=== PATIENT | female | born 1960 | race Caucasian/White ===

== ENCOUNTER 2017-11-30 21:20 | Emergency (ER) | payer OTHER ==
[~2017-11-30] VITALS: Ht 170.2 cm; Wt 104.3 kg
[~2017-11-30 21:20] MED LIST: ASPI325 PO; BACL10 PO; BP PILL; Bactrim Ds Tab1 EACH PO; Bactroban22 GM TOP; CALCAVITD PO; DICL25ER PO; ERGO400 PO; ERGO50000 PO; FURO20 PO; FURO40 PO; HYDACE5; HYDACE5 PO; HYDMOR4 PO; HYDR-86; IBUHYD PO; IBUP600 PO; IBUP800; IBUP800 PO; KETO10 PO; LEVFLO500 PO; LISHYD2025 PO; LISI5 PO; LORA1 PO; MELO7.5 PO; METF500 PO; METH5 PO; NAPR500 PO; NAPR550 PO; NORTRIPTYLINE; Naprosyn500 MG PO; OXYACE5T; OXYACE5T PO; OXYC5 PO; PRED20 PO; PROM25 PO; RXHYDACE PO; RXNAPNA550 PO; RXTRAM50 PO; SULTRIDS PO; TRAM50; VALS80; VICODIN ES 7.51 EACH PO; VIMOVO 500-201 EACH; VIMOVO 500-201 EACH PO; Veetids 500500 MG PO
[2017-12-01 00:02] LABS: BASOPHILS ABSOLUTE AUTO 0.04 K/mm3 (0.00-0.23); BASOPHILS PERCENT AUTO 1 % (0-2); EOSINOPHILS PERCENT AUTO 1 % (0-6); Hematocrit 38.5 % (33.0-51.0); Hemoglobin 12.3 g/dL (11.5-16.0); IMMATURE GRAN ABSOLUTE AUTO 0.02 K/mm3 (0.00-0.10); IMMATURE GRAN PERCENT AUTO 0 % (0-1); LYMPHOCYTES ABSOLUTE AUTO 2.59 K/mm3 (0.84-5.20); LYMPHOCYTES PERCENT AUTO 34 % (21-46); MONOCYTES ABSOLUTE AUTO 0.56 K/mm3 (0.16-1.47); MONOCYTES PERCENT AUTO 7 % (4-13); Mean Corpuscular HGB 28.5 pg (26.0-34.0); Mean Corpuscular HGB Conc 31.9 g/dL (31.5-36.5); Mean Corpuscular Volume 89 fL (80-100); Mean Platelet Volume 10.8 fL (9.1-12.4); NEUTROPHILS ABSOLUTE AUTO 4.35 K/mm3 (1.96-9.15); NEUTROPHILS PERCENT AUTO 57 % (41-73); Platelet Count 259 K/mm3 (150-400); RDW Coefficient Variation 12.7 % (11.7-14.2); RDW Standard Deviation 42.3 fL (35.1-46.3); Red Blood Cell Count 4.31 M/mm3 (3.80-5.20); White Blood Cell Count 7.66 K/mm3 (4.00-11.30)
[2017-12-01 00:36] LABS: Alanine Aminotransfer (ALT/SGP 17 U/L (12-78); Albumin, Blood 3.3 g/dL (3.4-5.0); Albumin/Globulin Ratio 0.8 (0.8-1.8); Alk Phos 153 U/L (50-136); Anion Gap 7 mmol/L (6-16); Aspartate Aminotrans (AST/SGOT 15 U/L (12-37); Bilirubin, Total 0.2 mg/dL (0.1-1.0); Blood Urea Nitrogen 21 mg/dL (8-24); Bun/Creatinine Ratio 26.4 (12.0-20.0); CO2, Blood 26 mmol/L (21-32); Chloride, Blood 110 mmol/L (98-108); Creatinine, Blood 0.79 mg/dL (0.40-1.00); Glomerular Filtration Rate >60 (60-); Glucose, Blood 103 mg/dL (70-99); Potassium, Blood 4.1 mmol/L (3.5-5.5); Sodium, Blood 143 mmol/L (136-145); Total Protein, Blood 7.3 g/dL (6.4-8.2); Troponin I <0.015 ng/mL (0.000-0.040)
== END 2017-12-01 01:31 | disposition home or self-care (01) ==
LOC: ER 21:20
PROVIDERS: Physician Assistant
DX: R07.9 Chest pain, unspecified (principal); M25.512 Pain in left shoulder; I10 Essential (primary) hypertension; Z88.8 Allergy status to other drugs, medicaments and biological substances; Z88.6 Allergy status to analgesic agent; Z79.899 Other long term (current) drug therapy; M54.9 Dorsalgia, unspecified; G89.29 Other chronic pain; Z98.51 Tubal ligation status; Z90.710 Acquired absence of both cervix and uterus; Z90.722 Acquired absence of ovaries, bilateral; Z90.49 Acquired absence of other specified parts of digestive tract
CPT/HCPCS: 36415; 71046; 80053; 84484; 85025; 93005; 93010; 99284

== ENCOUNTER 2017-12-20 08:59 | Day surgery (SDC) | payer OTHER | END 2017-12-20 22:54 | disposition home or self-care (01) | LOC: CT 08:59 | PROVIDERS: Radiology Diagnostic Radiology | PROC: B221YZZ Computerized Tomography (CT Scan) of Multiple Coronary Arteries using Other Contrast (ICD-10-PCS; principal; 2017-12-20 09:30) | DX: R07.9 Chest pain, unspecified (principal); R00.0 Tachycardia, unspecified; R94.39 Abnormal result of other cardiovascular function study | CPT/HCPCS: 75574; Q9967 ==

== ENCOUNTER → 2018-11-14 | Outpatient (CLI) | payer OTHER ==
[2018-11-21 14:11] LABS: HPV 16 Negative (Negative); HPV 18 Negative (Negative); HPV OTHER HR TYPES Negative (Negative)
== END | disposition home or self-care (01) ==
LOC: LAB SHORT 16:16 → LAB 16:16
PROVIDERS: Family Medicine
DX: Z01.411 Encounter for gynecological examination (general) (routine) with abnormal findings (principal); N95.2 Postmenopausal atrophic vaginitis
CPT/HCPCS: 87070; 87205; 87624; G0123

== ENCOUNTER 2019-07-23 07:17 | Emergency (ER) | payer OTHER ==
[~2019-07-23] VITALS: Ht 170.2 cm; Wt 108.9 kg
[~2019-07-23 07:17] MED LIST changes: +CEPH500 PO; +Pyridium100 MG PO
== END 2019-07-23 08:31 | disposition home or self-care (01) ==
LOC: ER 07:17
DX: S70.01XA Contusion of right hip, initial encounter (principal); S30.0XXA Contusion of lower back and pelvis, initial encounter; S50.311A Abrasion of right elbow, initial encounter; W10.9XXA Fall (on) (from) unspecified stairs and steps, initial encounter; Z88.8 Allergy status to other drugs, medicaments and biological substances; Z88.5 Allergy status to narcotic agent
CPT/HCPCS: 72100; 73502; 99283-25

== ENCOUNTER 2020-07-08 18:28 | Inpatient (IN) | payer OTHER ==
[~2020-07-08] VITALS: Ht 170.2 cm; Wt 115.7 kg
[2020-07-08 19:13] LABS: BASOPHILS ABSOLUTE AUTO 0.04 K/mm3 (0.00-0.23); BASOPHILS PERCENT AUTO 1 % (0-2); EOSINOPHILS ABSOLUTE AUTO 0.02 K/mm3 (0.00-0.68); EOSINOPHILS PERCENT AUTO 0 % (0-6); Hematocrit 43.3 % (33.0-51.0); Hemoglobin 14.3 g/dL (11.5-16.0); IMMATURE GRAN ABSOLUTE AUTO 0.03 K/mm3 (0.00-0.10); IMMATURE GRAN PERCENT AUTO 0 % (0-1); LYMPHOCYTES ABSOLUTE AUTO 2.39 K/mm3 (0.84-5.20); LYMPHOCYTES PERCENT AUTO 29 % (21-46); MONOCYTES ABSOLUTE AUTO 0.52 K/mm3 (0.16-1.47); MONOCYTES PERCENT AUTO 6 % (4-13); Mean Corpuscular HGB 28.4 pg (26.0-34.0); Mean Corpuscular Volume 86 fL (80-100); Mean Platelet Volume 10.1 fL (9.1-12.4); NEUTROPHILS ABSOLUTE AUTO 5.32 K/mm3 (1.96-9.15); NEUTROPHILS PERCENT AUTO 64 % (41-73); Platelet Count 306 K/mm3 (150-400); RDW Coefficient Variation 13.3 % (11.7-14.2); RDW Standard Deviation 41.6 fL (35.1-46.3); Red Blood Cell Count 5.03 M/mm3 (3.80-5.20); White Blood Cell Count 8.32 K/mm3 (4.00-11.30)
[2020-07-08 19:38] LABS: Alanine Aminotransfer (ALT/SGP 17 U/L (12-78); Albumin, Blood 3.5 g/dL (3.4-5.0); Albumin/Globulin Ratio 0.7 (0.8-1.8); Alk Phos 170 U/L (50-136); Anion Gap 7 mmol/L (6-16); Aspartate Aminotrans (AST/SGOT 20 U/L (12-37); Bilirubin, Total 0.6 mg/dL (0.1-1.0); Blood Urea Nitrogen 14 mg/dL (8-24); Bun/Creatinine Ratio 14.7 (12.0-20.0); CO2, Blood 23 mmol/L (21-32); Calcium, Blood 9.3 mg/dL (8.5-10.1); Chloride, Blood 107 mmol/L (98-108); Creatinine, Blood 0.95 mg/dL (0.40-1.00); Globulin, Blood 4.7 g/dL (2.2-4.0); Glomerular Filtration Rate >60 (60-); Glucose, Blood 122 mg/dL (70-99); Potassium, Blood 4.2 mmol/L (3.5-5.5); Sodium, Blood 137 mmol/L (136-145); Total Protein, Blood 8.2 g/dL (6.4-8.2)
[2020-07-08 21:47] LABS: Source, Urine Clean Catch
[2020-07-08 21:50] LABS: Blood, Urine 5+ (Neg); Glucose Qualitative, Urine Neg (Neg); Ketones, Urine 1+ (Neg); Leukocyte Esterase, Urine 1+ (Neg); Nitrite, Urine Pos (Neg); Protein, Urine 3+ (Neg); Specific Gravity, Urine 1.015 (1.003-1.022); Urobilinogen, Urine 2+ (Normal)
[2020-07-08 21:51] LABS: Prothrombin Time Results 86.5 Sec (9.7-11.5)
[2020-07-08 21:54] LABS: International Normalized Ratio 9.16
[2020-07-08 21:54] LABS: Appearance, Urine Cloudy (Clear); Bilirubin, Urine 1+ (Neg); Color, Urine Brown (P-Yellow)
[2020-07-08 21:58] LABS: Amorphous Light (0-Heavy); Bacteria Mod /hpf; Red Blood Cells, Urine TNTC /hpf (0-2); Squamous Epithelial Cells Not Seen /hpf (Few); White Blood Cells, Urine 25-50 /hpf (0-5)
[2020-07-08] MEDS ORDERED: WARF7.5 PO (22:11)
[2020-07-08] MEDS ORDERED: VENL37.5 PO (22:11)
[2020-07-08] MEDS ORDERED: METO50ER PO (22:13)
[2020-07-08 22:27] LABS: Body Fluid Crystals NEG (NEGATIVE)
[2020-07-08 22:41] LABS: BODY FLUID RBC 3.985 M/mm3 (0-0); RBC Count, Synovial Fluid 3985000 /mm3 (0-0); WBC Count, Synovial Fluid 2925 /mm3 (0-180)
[2020-07-08 23:03] LABS: Eos, Synovial Fluid 1 % (0-2); Lymphs, Synovial Fluid 32 % (0-15); Monocytes/Macrophages, Synovia 3 % (0-65); Neutrophils, Synovial Fluid 64 % (0-24)
[2020-07-08 23:04] LABS: Appearance, Synovial Fluid Bloody (Clear); Color, Synovial Fluid Red (None-P Yel)
[2020-07-09] MEDS ORDERED: FURO20 PO (01:46)
--- NOTE | 2020-07-09 05:13 | NUR ---
SHIFT SUMMARY PT ER ADMIT THIS SHIFT FOR UTI/FEVER, INCREASED INR/PT. PT RECEIVED VITAMIN K IN THE ER. DR. ZHONG ORDERED 4 UNITS OF PLASMA ALSO TO INFUSED TO REVERSE ELEVATED INR/PT. PT HAS TOLERATED PLASMA INFUSION WITH NO REACTIONS. PT STILL HAS TWO UNITS TO INFUSE. PT/INR TO BE RECHECKED AFTER INFUSION. PT CONTINUES TO BE HYPERTENSIVE. IMPROVED FROM ER, BUT BP GOES UP AND DOWN AND INCREASES WITH PAIN PER HER REPORT. HYDRALYZINE ORDERED FOR SBP OVER 160. PT HAS AMBULATED TO THE BATHROOM SINCE ARRIVING TO FLOOR AND SHE REPORTS THAT SHE TOLERATED WELL. FLUID DRAINED OFF KNEE IN ER WHICH ALSO RELIVED PAIN. IV ABX INFUSED IN ER. NO ACUTE EVENTS SINCE ARRIVING TO THE UNIT. ADMISSION COMPLETE. BED IN LOWEST POSITION, CALL LIGHT WITHIN REACH.
[2020-07-09 05:21] LABS: BASOPHILS ABSOLUTE AUTO 0.03 K/mm3 (0.00-0.23); BASOPHILS PERCENT AUTO 1 % (0-2); EOSINOPHILS ABSOLUTE AUTO 0.03 K/mm3 (0.00-0.68); EOSINOPHILS PERCENT AUTO 1 % (0-6); Hematocrit 37.8 % (33.0-51.0); Hemoglobin 11.8 g/dL (11.5-16.0); IMMATURE GRAN ABSOLUTE AUTO 0.02 K/mm3 (0.00-0.10); IMMATURE GRAN PERCENT AUTO 0 % (0-1); LYMPHOCYTES ABSOLUTE AUTO 2.27 K/mm3 (0.84-5.20); LYMPHOCYTES PERCENT AUTO 34 % (21-46); MONOCYTES ABSOLUTE AUTO 0.49 K/mm3 (0.16-1.47); MONOCYTES PERCENT AUTO 7 % (4-13); Mean Corpuscular HGB 27.8 pg (26.0-34.0); Mean Corpuscular HGB Conc 31.2 g/dL (31.5-36.5); Mean Corpuscular Volume 89 fL (80-100); Mean Platelet Volume 10.7 fL (9.1-12.4); NEUTROPHILS ABSOLUTE AUTO 3.78 K/mm3 (1.96-9.15); NEUTROPHILS PERCENT AUTO 57 % (41-73); Platelet Count 216 K/mm3 (150-400); RDW Coefficient Variation 13.3 % (11.7-14.2); RDW Standard Deviation 43.3 fL (35.1-46.3); Red Blood Cell Count 4.25 M/mm3 (3.80-5.20); White Blood Cell Count 6.62 K/mm3 (4.00-11.30)
[2020-07-09 05:34] LABS: International Normalized Ratio 3.01
[2020-07-09 05:42] LABS: Prothrombin Time Results 30.3 Sec (9.7-11.5)
[2020-07-09 05:45] LABS: Anion Gap 6 mmol/L (6-16); Blood Urea Nitrogen 15 mg/dL (8-24); Bun/Creatinine Ratio 15.7 (12.0-20.0); CO2, Blood 25 mmol/L (21-32); Calcium, Blood 9.1 mg/dL (8.5-10.1); Chloride, Blood 109 mmol/L (98-108); Creatinine, Blood 0.95 mg/dL (0.40-1.00); Glomerular Filtration Rate >60 (60-); Glucose, Blood 98 mg/dL (70-99); Potassium, Blood 3.9 mmol/L (3.5-5.5); Sodium, Blood 140 mmol/L (136-145)
--- NOTE | 2020-07-09 05:47 | NUR ---
PT/INR PT IS 30.[address] ZHONG CALLED AND NOTIFIED AND NOTIFIED THAT PT HAD ALREADY RECEIVED 2 UNITS OF PLASMA. SHE WOULD LIKE THE OTHER 2 UNITS INFUSED AND RECHECKED PT/INR AFTER THEY ARE DONE.
--- NOTE | 2020-07-09 06:51 | NUR ---
DAYSHIFT RN TO INFUSE LAST UNIT OF PLASMA. CHANGE OF SHIFT WILL NOT HAVE TIME TO DO 15 MINUTE MONITORING. PT HAS RECEIVED THREE TOTAL UNITS.
[2020-07-09 09:05] LABS: International Normalized Ratio 1.77
[2020-07-09 09:23] LABS: Prothrombin Time Results 18.3 Sec (9.7-11.5)
[2020-07-09] MEDS ORDERED: CEFP200 PO (12:30)
--- NOTE | 2020-07-09 13:20 | NUR ---
DISCHARGE NOTE PATIENT DISCHARGED TO HOME. PATIENT ALERT AND ORIENTED THROUGHOUT THIS SHIFT. PATIENT INDEPENDENT TO THE RESTROOM THIS SHIFT. PATIENT DOWN TO IMAGING THIS AM. PATIENT STATES PAIN IN RIGHT KNEE VASTLY IMPROVED. PATIENT'S DAUGHTER IN THE ROOM THIS AM TO VISIT. IV REMOVED PRIOR TO DISCHARGE. PATIENT PROVIDED WITH DISCHARGE AND MEDICATION INSTRUCTIONS. PATIENT DRESSED INDEPENDENTLY. PATIENT TO SISTER'S VEHICLE VIA WHEELCHAIR BY ALEX.
== END 2020-07-09 13:15 | disposition home or self-care (01) | DRG 554 ==
LOC: ER 18:28 → MEDS 18:29
PROVIDERS: Emergency Medicine; ADMIT Family Medicine
PROC: 0S9C3ZZ Drainage of Right Knee Joint, Percutaneous Approach (ICD-10-PCS; principal; 2020-07-08)
PROC: 30233L1 Transfusion of Nonautologous Fresh Plasma into Peripheral Vein, Percutaneous Approach (ICD-10-PCS; 2020-07-09)
DX: M25.061 Hemarthrosis, right knee (principal); N39.0 Urinary tract infection, site not specified; R65.10 Systemic inflammatory response syndrome (SIRS) of non-infectious origin without acute organ dysfunction; Z96.651 Presence of right artificial knee joint; G89.29 Other chronic pain; I48.91 Unspecified atrial fibrillation; R79.89 Other specified abnormal findings of blood chemistry; I10 Essential (primary) hypertension; E66.9 Obesity, unspecified; Z68.39 Body mass index [BMI] 39.0-39.9, adult
CPT/HCPCS: 20610; 36415; 73564; 74176; 80048; 80053; 81001; 83690; 85025; 85610; 85651; 86140; 86900; 86901; 87070; 87075; 87086; 87205; 89051; 89060; 96361-59; 96365-59; 96372-59; 96375-59; 99284-25; A9270-GY; J0692; J0696; J1885; J3430; J7030; J7040; P9059; P9612

== ENCOUNTER 2021-04-02 17:17 | Emergency (ER) | payer OTHER ==
[~2021-04-02] VITALS: Ht 170.2 cm; Wt 113.4 kg
[~2021-04-02 17:17] MED LIST changes: +CEFP200 PO; +METO50ER PO; +OLME5TAB PO; +VENL37.5 PO; +WARF7.5 PO
== END 2021-04-02 19:25 | disposition home or self-care (01) ==
LOC: ER 17:17
DX: M25.462 Effusion, left knee (principal); I48.91 Unspecified atrial fibrillation; Z88.5 Allergy status to narcotic agent; Z88.8 Allergy status to other drugs, medicaments and biological substances; Z79.01 Long term (current) use of anticoagulants
CPT/HCPCS: 73562-LT; 99283-25

== ENCOUNTER 2021-04-02 20:40 | Emergency (ER) | payer OTHER ==
[~2021-04-02] VITALS: Ht 170.2 cm; Wt 113.4 kg
[2021-04-02 21:56] LABS: BASOPHILS ABSOLUTE AUTO 0.05 K/mm3 (0.00-0.23); BASOPHILS PERCENT AUTO 1 % (0-2); EOSINOPHILS ABSOLUTE AUTO 0.06 K/mm3 (0.00-0.68); EOSINOPHILS PERCENT AUTO 1 % (0-6); Hematocrit 41.4 % (33.0-51.0); Hemoglobin 13.4 g/dL (11.5-16.0); IMMATURE GRAN ABSOLUTE AUTO 0.01 K/mm3 (0.00-0.10); IMMATURE GRAN PERCENT AUTO 0 % (0-1); LYMPHOCYTES ABSOLUTE AUTO 2.25 K/mm3 (0.84-5.20); LYMPHOCYTES PERCENT AUTO 29 % (21-46); MONOCYTES ABSOLUTE AUTO 0.47 K/mm3 (0.16-1.47); MONOCYTES PERCENT AUTO 6 % (4-13); Mean Corpuscular HGB 27.7 pg (26.0-34.0); Mean Corpuscular HGB Conc 32.4 g/dL (31.5-36.5); Mean Corpuscular Volume 86 fL (80-100); NEUTROPHILS ABSOLUTE AUTO 4.92 K/mm3 (1.96-9.15); NEUTROPHILS PERCENT AUTO 63 % (41-73); Platelet Count 306 K/mm3 (150-400); RDW Coefficient Variation 14.2 % (11.7-14.2); RDW Standard Deviation 44.5 fL (35.1-46.3); Red Blood Cell Count 4.83 M/mm3 (3.80-5.20); White Blood Cell Count 7.76 K/mm3 (4.00-11.30)
[2021-04-02 22:14] LABS: Albumin, Blood 3.8 g/dL (3.4-5.0); Albumin/Globulin Ratio 0.8 (0.8-1.8); Bilirubin, Total 0.7 mg/dL (0.1-1.0); Bun/Creatinine Ratio 13.6 (12.0-20.0); Calcium, Blood 9.2 mg/dL (8.5-10.1); Creatinine, Blood 1.03 mg/dL (0.40-1.00); Globulin, Blood 4.5 g/dL (2.2-4.0); Potassium, Blood 4.1 mmol/L (3.5-5.5); Total Protein, Blood 8.3 g/dL (6.4-8.2)
[2021-04-02 23:18] LABS: Source, Urine Clean Catch
[2021-04-02 23:21] LABS: Bilirubin, Urine Neg (Neg); Blood, Urine 5+ (Neg); Glucose Qualitative, Urine Neg (Neg); Ketones, Urine Neg (Neg); Leukocyte Esterase, Urine Neg (Neg); Nitrite, Urine Neg (Neg); Protein, Urine 4+ (Neg); Urobilinogen, Urine NORM (Normal); pH, Urine 6.5 (5.0-8.0)
[2021-04-02 23:31] LABS: International Normalized Ratio 7.48; Prothrombin Time Results 72.1 Sec (9.7-11.5)
[2021-04-02 23:35] LABS: Appearance, Urine Turbid (Clear); Color, Urine Red (P-Yellow)
[2021-04-02 23:36] LABS: Bacteria Few /hpf; Red Blood Cells, Urine TNTC /hpf (0-2); Squamous Epithelial Cells Rare /hpf (Few)
== END 2021-04-03 01:05 | disposition home or self-care (01) ==
LOC: ER 20:40
PROVIDERS: Physician Assistant
DX: M25.062 Hemarthrosis, left knee (principal); R31.9 Hematuria, unspecified; R79.1 Abnormal coagulation profile; I48.91 Unspecified atrial fibrillation; Z88.5 Allergy status to narcotic agent; Z88.8 Allergy status to other drugs, medicaments and biological substances
CPT/HCPCS: 36415; 74177; 80053; 81001; 85025; 85610; 85730; 86850; 86900; 86901; 87086; 93005; 93010; 99283; 99284-25; A9270; Q9967

== ENCOUNTER 2021-04-05 18:26 | Emergency (ER) | payer OTHER ==
[~2021-04-05] VITALS: Ht 170.2 cm; Wt 113.4 kg
[2021-04-05 19:17] LABS: BASOPHILS ABSOLUTE AUTO 0.04 K/mm3 (0.00-0.23); BASOPHILS PERCENT AUTO 1 % (0-2); EOSINOPHILS ABSOLUTE AUTO 0.08 K/mm3 (0.00-0.68); EOSINOPHILS PERCENT AUTO 1 % (0-6); Hematocrit 39.1 % (33.0-51.0); Hemoglobin 12.6 g/dL (11.5-16.0); IMMATURE GRAN ABSOLUTE AUTO 0.01 K/mm3 (0.00-0.10); IMMATURE GRAN PERCENT AUTO 0 % (0-1); LYMPHOCYTES ABSOLUTE AUTO 2.04 K/mm3 (0.84-5.20); LYMPHOCYTES PERCENT AUTO 36 % (21-46); MONOCYTES ABSOLUTE AUTO 0.37 K/mm3 (0.16-1.47); MONOCYTES PERCENT AUTO 7 % (4-13); Mean Corpuscular HGB 27.7 pg (26.0-34.0); Mean Corpuscular HGB Conc 32.2 g/dL (31.5-36.5); Mean Corpuscular Volume 86 fL (80-100); Mean Platelet Volume 10.8 fL (9.1-12.4); NEUTROPHILS ABSOLUTE AUTO 3.06 K/mm3 (1.96-9.15); NEUTROPHILS PERCENT AUTO 55 % (41-73); Platelet Count 298 K/mm3 (150-400); RDW Coefficient Variation 14.1 % (11.7-14.2); RDW Standard Deviation 44.1 fL (35.1-46.3); Red Blood Cell Count 4.55 M/mm3 (3.80-5.20)
[2021-04-05 19:36] LABS: Albumin, Blood 3.6 g/dL (3.4-5.0); Albumin/Globulin Ratio 0.8 (0.8-1.8); Bilirubin, Total 0.7 mg/dL (0.1-1.0); Bun/Creatinine Ratio 14.5 (12.0-20.0); Calcium, Blood 9.4 mg/dL (8.5-10.1); Creatinine, Blood 1.1 mg/dL (0.40-1.00); Globulin, Blood 4.5 g/dL (2.2-4.0); Potassium, Blood 4.3 mmol/L (3.5-5.5); Total Protein, Blood 8.1 g/dL (6.4-8.2)
[2021-04-05 20:26] LABS: Source, Urine Clean Catch
[2021-04-05 20:39] LABS: Appearance, Urine Clear (Clear); Bilirubin, Urine Neg (Neg); Blood, Urine 5+ (Neg); Color, Urine Amber (P-Yellow); Glucose Qualitative, Urine Neg (Neg); Ketones, Urine Neg (Neg); Leukocyte Esterase, Urine 1+ (Neg); Nitrite, Urine Neg (Neg); Protein, Urine 3+ (Neg); Specific Gravity, Urine 1.025 (1.003-1.022); Urobilinogen, Urine 2+ (Normal)
[2021-04-05 20:50] LABS: Bacteria Many /hpf; Mucus Light (0-Heavy); Red Blood Cells, Urine 50-100 /hpf (0-2); Squamous Epithelial Cells Few /hpf (Few)
[2021-04-05] MEDS ORDERED: CEFD300 PO (22:13)
== END 2021-04-05 22:40 | disposition home or self-care (01) ==
LOC: ER 18:26
PROVIDERS: Physician Assistant
DX: N12 Tubulo-interstitial nephritis, not specified as acute or chronic (principal); I48.91 Unspecified atrial fibrillation; Z79.01 Long term (current) use of anticoagulants; Z79.899 Other long term (current) drug therapy; Z88.5 Allergy status to narcotic agent; Z88.8 Allergy status to other drugs, medicaments and biological substances
CPT/HCPCS: 36415; 80053; 81001; 83690; 85025; 87086; 96374; 96375; 96376; 99284-25; A9270; J0696; J2405

== ENCOUNTER 2022-06-30 14:19 | Emergency (ER) | payer OTHER ==
[~2022-06-30] VITALS: Ht 170.2 cm; Wt 113.4 kg
[~2022-06-30 14:19] MED LIST changes: +CEFD300 PO
[2022-06-30 15:02] LABS: BASOPHILS ABSOLUTE AUTO 0.03 K/mm3 (0.00-0.23); BASOPHILS PERCENT AUTO 1 % (0-2); EOSINOPHILS ABSOLUTE AUTO 0.06 K/mm3 (0.00-0.68); EOSINOPHILS PERCENT AUTO 1 % (0-6); Hematocrit 35.4 % (33.0-51.0); Hemoglobin 11.4 g/dL (11.5-16.0); IMMATURE GRAN ABSOLUTE AUTO 0.01 K/mm3 (0.00-0.10); IMMATURE GRAN PERCENT AUTO 0 % (0-1); LYMPHOCYTES ABSOLUTE AUTO 1.66 K/mm3 (0.84-5.20); LYMPHOCYTES PERCENT AUTO 34 % (21-46); MONOCYTES ABSOLUTE AUTO 0.28 K/mm3 (0.16-1.47); MONOCYTES PERCENT AUTO 6 % (4-13); Mean Corpuscular HGB 28.1 pg (26.0-34.0); Mean Corpuscular HGB Conc 32.2 g/dL (31.5-36.5); Mean Corpuscular Volume 87 fL (80-100); Mean Platelet Volume 10.9 fL (9.1-12.4); NEUTROPHILS ABSOLUTE AUTO 2.81 K/mm3 (1.96-9.15); NEUTROPHILS PERCENT AUTO 58 % (41-73); Platelet Count 251 K/mm3 (150-400); RDW Standard Deviation 45.1 fL (35.1-46.3); Red Blood Cell Count 4.05 M/mm3 (3.80-5.20); White Blood Cell Count 4.85 K/mm3 (4.00-11.30)
[2022-06-30 15:22] LABS: Albumin, Blood 3.2 g/dL (3.4-5.0); Albumin/Globulin Ratio 0.9 (0.8-1.8); Bilirubin, Total 0.4 mg/dL (0.1-1.0); Bun/Creatinine Ratio 18.1 (12.0-20.0); Calcium, Blood 8.7 mg/dL (8.5-10.1); Creatinine, Blood 0.88 mg/dL (0.40-1.00); Globulin, Blood 3.5 g/dL (2.2-4.0); Potassium, Blood 3.9 mmol/L (3.5-5.5); Total Protein, Blood 6.7 g/dL (6.4-8.2)
[2022-06-30] MEDS ORDERED: XARELTO20 M1 PO (17:23)
[2022-06-30 18:03] LABS: Influenza A, PCR NEGATIVE (NEGATIVE); Influenza B, PCR NEGATIVE (NEGATIVE); Resp Syncytial Virus, PCR NEGATIVE (NEGATIVE); SARS-Cov-2 (COVID-19) PCR, MMC NEGATIVE (NEGATIVE)
== END 2022-06-30 18:55 | disposition home or self-care (01) ==
LOC: ER 14:19
PROVIDERS: Physician Assistant; Student in an Organized Health Care Education/Training Program
DX: I10 Essential (primary) hypertension (principal); R07.9 Chest pain, unspecified; Z88.5 Allergy status to narcotic agent; Z88.8 Allergy status to other drugs, medicaments and biological substances; Z79.01 Long term (current) use of anticoagulants; Z20.822 Contact with and (suspected) exposure to COVID-19
CPT/HCPCS: 0241U; 36415; 71046; 80053; 83690; 83880; 84484; 85025; 93005; 93010

== ENCOUNTER 2023-03-26 07:21 | Day surgery (SDC) | payer OTHER ==
[~2023-03-26] VITALS: Ht 170.2 cm; Wt 120.2 kg
[2023-03-26] VITALS (9 sets, daily range): BP systolic 115–152; BP diastolic 75–99
[~2023-03-26 07:21] MED LIST changes: +NARA2.5; +OLME20 PO; +XARELTO20 M1 PO
--- NOTE | 2023-03-26 17:49 | NUR ---
SHIFT SUMMARY: PT ARRIVED IN PCU APPROX 1400 FOLLOWING PACEMAKER IMPLANT. PT A&OX4, LETHARGIC IN BED. ABLE TO MAKE NEEDS KNOWN TO STAFF. HR AFIB WITH VENTRICULAR PACING, 60'S. SBP MOSTLY 130-150'S. SPO2 >90% ON RA. PT DENIES SOB. PT REPORTS PAIN 11/10 IN LEFT CHEST. MEDICATED WITH NORCO PER EMAR. SLING PLACED ON LUE PER ORDERS. IV IN LAC SALINE LOCKED. PT HAS NOT VOIDED FOLLOWING PROCEDURE. ABLE TO EAT WITH MINIMAL ASSISTANCE. FAMILY MEMBERS AT BEDSIDE. CALL LIGHT WITHIN REACH. NO FURTHER NEEDS AT THIS TIME.
[2023-03-27 03:11] VITALS: BP 135/88
--- NOTE | 2023-03-27 06:11 | NUR ---
SHIFT SUMMARY PT IS A&OX4, CALLS APPROPRIATELY AND MAKES NEEDS KNOWN. SHE IS A 1P SBA TO THE BATHROOM AND ON A CARDIAC DIET. PT HAS BEEN ON RA MOST OF THE NIGHT, BUT SHE BEGAN TO DESATURATE TO THE MID 80 S WHILE SLEEPING AND WAS PUT ON 1L NC. SHE HAS NOT DESATURATED SINCE. ON TELE SHE HAS BEEN PACED AT 60 ON TELE AND SHE DENIES ANY ANGINA OR CHEST PRESSURE. THE PT HAS BEEN HAVING SOME PAIN AT THE INCISION SITE AND HAS NEEDED MEDICATIONS T/O THE SHIFT. PT DENIES ANY HEADACHE, N/V/D, OR OTHER PAIN. HER BED IS IN LOW AND CALL LIGHT IS IN REACH, SEE NOTES FOR ANY UPDATES.
[2023-03-27 08:31] VITALS: BP 120/75
[2023-03-27] MEDS ORDERED: CEPH500 PO (09:09)
--- NOTE | 2023-03-27 10:01 | NUR ---
DISCHARGE: PATIENT ALERT AND ORIENTED X4. PERRLA, WEARING GLASSES. UP WITH SBA. CHRONIC N/T TO LEFT FOOT/TOES AND LOWER LEG. S/P PACER PLACEMENT ON 03/26. LEFT SHOULDER SLING IN PLACE. PATIENT EDUCATED ON POST PACER PRECAUTIONS. WRITTEN PACKET PROVIDED. PACER INTERROGATION COMPLETED THIS AM WELL CHEST XRAY. DR. ARIZA TO BEDSIDE TO CHANGE DRESSING. PACER SITE C/D/I. NO SIGNS OF BLEEDING. PATIENT COMPLAINS OF SORENESS AT SITE. MEDICATED PER EMAR. PATIENT EDUCATED ON FOLLOW UP APPOINTMENTS AND HOLDING XERALTO. ANTIBIOTIC FAXED TO [facility] AND PATIENT TO RETAIL DEPARTMENT RESET. PATIENT ABLE TO VERBALIZE INSTRUCTIONS BACK TO THIS RN. ON ROOM AIR, DENIES SOB/COUGH. EATING AND VOIDING WNL. UP SBA. FAMILY PRESENT AT DISCHARGE AND FOR DISCHARGE EDUCATION. PATIENT LEFT UNIT WITH ALL PERSONAL BELONGINGS INCLUDING PACER INSTRUCTIONS AND TEMPORARY PACER CARD.
== END 2023-03-27 09:47 | disposition home or self-care (01) ==
LOC: PCU 07:21 → MHTC 07:21 → PCU 15:06 → MHTC 03-27 09:47
DX: I48.0 Paroxysmal atrial fibrillation (principal); I48.19 Other persistent atrial fibrillation; E11.8 Type 2 diabetes mellitus with unspecified complications; E11.51 Type 2 diabetes mellitus with diabetic peripheral angiopathy without gangrene; Z95.0 Presence of cardiac pacemaker; I49.5 Sick sinus syndrome; I10 Essential (primary) hypertension
CPT/HCPCS: 33208; 71045; 71046; 76937; 99152; 99153; A9270; C1781; C1785; C1894; C1898; J0690; J1644; J2250; J3010; J7030; J7040

== ENCOUNTER 2023-06-15 05:32 | Day surgery (SDC) | payer OTHER | END 2023-06-15 22:35 | disposition home or self-care (01) | LOC: MHTC 05:32 | DX: I48.19 Other persistent atrial fibrillation (principal); I49.5 Sick sinus syndrome; F32.A Depression, unspecified; Z95.0 Presence of cardiac pacemaker; Z96.652 Presence of left artificial knee joint; Z88.8 Allergy status to other drugs, medicaments and biological substances; Z88.6 Allergy status to analgesic agent ==

== ENCOUNTER 2023-08-14 06:05 | Day surgery (SDC) | payer OTHER ==
[~2023-08-14] VITALS: Ht 167.6 cm; Wt 116.2 kg
[2023-08-14] VITALS (13 sets, daily range): BP systolic 87–151; BP diastolic 45–97
[~2023-08-14 06:05] MED LIST changes: +POTCHL20ER PO; +XARELTO20 MG PO
[2023-08-14] MEDS ORDERED: OZEMPIC1 MG/0.72 SC (06:30)
--- NOTE | 2023-08-14 08:31 | NUR ---
08/14/23 0831 Lora Marcelo SPINAL NERVE BLOCK COMPLETED BY DR. GARCIA UPON ENTRY TO OR. PT TOLERATED WELL.
--- NOTE | 2023-08-14 10:53 | NUR ---
PT ARRIVED TO THE UNIT AT APPROXIMATELY 1015. PT ALERT AND ORIENTED UPON ARRIVAL. PT EDUCATED TO USE THE CALL LIGHT, CALL LIGHT WITHIN REACH. PT PROVIDED WITH CLEAR LIQUIDS AND CRACKERS. LUNCH TRAY ORDERED. FAMILY AT BEDSIDE FOR SUPPORT.
--- NOTE | 2023-08-14 19:53 | NUR ---
SHIFT SUMMARY PT IS POD#0 FROM [facility] WITH DR. CLEVELAND. PAIN MANAGED WITH OXYCODONE. PT HAS VOIDED AND WORKED WITH THERAPY. SHE IS TOLERATING PO. BP HAS BEEN SOFT BUT IMPROVED. REPORT GIVEN TO RONA ROMERO.
[2023-08-15 00:08] VITALS: BP 136/81
[2023-08-15 03:54] VITALS: BP 140/82
[2023-08-15 04:20] LABS: BASOPHILS ABSOLUTE AUTO 0.01 K/mm3 (0.00-0.23); BASOPHILS PERCENT AUTO 0 % (0-2); EOSINOPHILS PERCENT AUTO 0 % (0-6); Hematocrit 31.6 % (33.0-51.0); Hemoglobin 9.9 g/dL (11.5-16.0); IMMATURE GRAN ABSOLUTE AUTO 0.05 K/mm3 (0.00-0.10); IMMATURE GRAN PERCENT AUTO 1 % (0-1); LYMPHOCYTES ABSOLUTE AUTO 1.06 K/mm3 (0.84-5.20); LYMPHOCYTES PERCENT AUTO 10 % (21-46); MONOCYTES ABSOLUTE AUTO 0.63 K/mm3 (0.16-1.47); MONOCYTES PERCENT AUTO 6 % (4-13); Mean Corpuscular HGB 26.7 pg (26.0-34.0); Mean Corpuscular HGB Conc 31.3 g/dL (31.5-36.5); Mean Corpuscular Volume 85 fL (80-100); Mean Platelet Volume 11.3 fL (9.1-12.4); NEUTROPHILS ABSOLUTE AUTO 9.25 K/mm3 (1.96-9.15); NEUTROPHILS PERCENT AUTO 84 % (41-73); Platelet Count 208 K/mm3 (150-400); RDW Coefficient Variation 14.6 % (11.7-14.2); RDW Standard Deviation 45.3 fL (35.1-46.3); Red Blood Cell Count 3.71 M/mm3 (3.80-5.20)
--- NOTE | 2023-08-15 04:46 | NUR ---
SHIFT SUMMARY NOC. PT POD 1 FOR LEFT TOTAL HIP BY DR. CLEVELAND. PT MEDICATED PER EMAR WITH OXYCODONE WITH RELIEF. PT TOLERATING PO INTAKE AND VOIDING URINE. PT AMBULATED TO THE BATHROOM AND WALKED AROUND THE ROOM WITH WALKER AND GAIT BELT. AQUACEL DRESSING C/D/I. PT RESTED THROUGHOUT THE NIGHT WITH CALL LIGHT IN REACH.
[2023-08-15 04:48] LABS: Bun/Creatinine Ratio 15.3 (12.0-20.0); Calcium, Blood 8.7 mg/dL (8.5-10.1); Creatinine, Blood 0.91 mg/dL (0.40-1.00); Potassium, Blood 4.4 mmol/L (3.5-5.5)
[2023-08-15 08:13] VITALS: BP 135/95
[2023-08-15] MEDS ORDERED: Percocet 5-3251 EACH PO (09:02)
--- NOTE | 2023-08-15 09:42 | NUR ---
DISCHARGE NOTE: PATIENT WAS EDUCATED ON DISCHARGE INSTRUCTIONS. SHE VERBALIZED UNDERSTANDING OF INSTRUCTIONS AND HAD NO FURTHER QUESTIONS AT THIS TIME. HER HARD PERSCRIPTION WAS PLACED IN HER DISCHARGE INSTRUCTIONS FOLDER. PAIN IS MANAGED WITH PO PAIN MEDS. HER LEFT HIP HAS AN AQUACEL THAT IS C/D/I. SHE DENIES NUMBNESS OR TINGLING IN ALL EXTREMITIES. CAN MOVE ALL FINGERS AND TOES WHEN ASKED. PATIENT IS DRESSED AND HAS PERSONAL ITEMS IN THE ROOM GATHERED. IV WAS TAKEN OUT AND WNL. SHE IS BEING WHEELCHAIRED OUT TO HER RIDE TO BE TAKEN HOME.
--- NOTE | 2023-08-15 09:43 | NUR ---
PATIENT IS TOLERATING PO INTAKE AND IS VOIDING. SHE IS A SBA WITH FWW AND GAIT BELT.
== END 2023-08-15 09:46 | disposition home or self-care (01) ==
LOC: ORSCMMR 06:05 → ORD 07:30 → ORSCMMR 07:30 → SURS 10:09 → ORD 11:00 → ORSCMMR 08-15 09:46
PROVIDERS: Orthopaedic Surgery
PROC: 0SRB0JZ Replacement of Left Hip Joint with Synthetic Substitute, Open Approach (ICD-10-PCS; principal; 2023-08-14 07:30)
DX: M16.12 Unilateral primary osteoarthritis, left hip (principal); I10 Essential (primary) hypertension; E66.01 Morbid (severe) obesity due to excess calories; Z68.41 Body mass index [BMI] 40.0-44.9, adult; Z95.0 Presence of cardiac pacemaker; I48.91 Unspecified atrial fibrillation; Z79.01 Long term (current) use of anticoagulants; Z79.899 Other long term (current) drug therapy
CPT/HCPCS: 36415; 72170; 80048; 85025; 97110; 97116; 97162; A9270; C1776; J0171; J0360; J0690; J0735; J0780; J1100; J1885; J2250; J2405; J2704; J2795; J3010; J7120

== ENCOUNTER 2025-09-11 08:13 | Day surgery (SDC) | payer MEDICARE, OTHER ==
[2025-09-11] VITALS (21 sets, daily range): BP systolic 113–139; BP diastolic 53–105
[~2025-09-11] VITALS: Ht 165.1 cm; Wt 84.5 kg
[~2025-09-11 08:13] MED LIST changes: +OZEMPIC1 MG/0.72 SC; +Percocet 5-3251 EACH PO
--- NOTE | 2025-09-11 08:31 | NUR ---
Pre-Op teaching done. Pt verbalizes understanding.. Ambulatory in Day Surgery. History, Chart, Medications and Allergies reviewed before start of procedure. Patient confirms NPO status and agrees with scheduled surgery. Patient States Post-Procedure ride home has been arranged.
[2025-09-11] MEDS ORDERED: Midazolam HCl 1MG / ML 2ML Vial ONE (09:07)
--- NOTE | 2025-09-11 09:10 | NUR ---
09/11/25 0910 Mirian Cruz CONFIRMED AND REVIEWED H&P, MEDCICATIONS, ALLERGIES, MEDICAL HISTORY, RESPIRATORY HISTORY, VITAL SIGNS, 3-LEAD EKG, CONSENTS, AND PHYSICIAN ORDERS. PATIENT CONFIRMS NPO STATUS AND AGREES WITH SCHEDULED PROCEDURE. MONITOR INTACT WITH CONTINUOUS PULSE OXIMETRY, CAPNOGRAPHY, 3-LEAD EKG, INTERMITTENT BP. SUPPLEMENTAL O2 TO BE TITRATED THROUGHOUT PROCEDURE TO MAINTAIN O2 SATURATION ABOVE 90%. PATIENT DETERMINED TO BE ASA APPROPRIATE FOR PROPOFOL SEDATION PRIOR TO START OF PROCEDURE BY DR. PRASAD. MALLAMPATI CLASS 2 AIRWAY: COMPLETE VISUALIZATION OF THE UVULA.
--- NOTE | 2025-09-11 10:09 | NUR ---
Discharge instructions reviewed with patient. Patient verbalizes understanding. Copy given to patient to take home. Patient States Post-Procedure ride home has been arranged. Discharged via wheelchair to private car for ride home.
== END 2025-09-11 10:10 | disposition home or self-care (01) ==
LOC: ORSCMMR 08:13 → ORD 09:00 → ORSCMMR 09:30 → ORD 09:30 → ORSCMMR 10:10
PROVIDERS: Internal Medicine Gastroenterology
PROC: 0DBC8ZX Excision of Ileocecal Valve, Via Natural or Artificial Opening Endoscopic, Diagnostic (ICD-10-PCS; principal; 2025-09-11 09:30)
PROC: 0DBK8ZX Excision of Ascending Colon, Via Natural or Artificial Opening Endoscopic, Diagnostic (ICD-10-PCS; principal; 2025-09-11 09:30)
PROC: 0DBN8ZX Excision of Sigmoid Colon, Via Natural or Artificial Opening Endoscopic, Diagnostic (ICD-10-PCS; principal; 2025-09-11 09:30)
DX: Z12.11 Encounter for screening for malignant neoplasm of colon (principal); D12.2 Benign neoplasm of ascending colon; D12.5 Benign neoplasm of sigmoid colon; K63.5 Polyp of colon; Z86.0101 Personal history of adenomatous and serrated colon polyps; Z80.0 Family history of malignant neoplasm of digestive organs; I48.91 Unspecified atrial fibrillation; Z95.0 Presence of cardiac pacemaker; Z79.01 Long term (current) use of anticoagulants; Z79.899 Other long term (current) drug therapy; K57.30 Diverticulosis of large intestine without perforation or abscess without bleeding
CPT/HCPCS: 88305; J2250; J2704; J7120